=== PATIENT | male | born 1955 | race Caucasian/White ===

== ENCOUNTER 2023-07-02 06:33 | Day surgery (SDC) | payer BC, SELFPAY ==
[2023-06-28 14:48] VITALS: BMI 28.7
[2023-07-02 06:59] VITALS: BP 146/90; PULSE 66; RESP 16; TEMP 36.7; O2SAT 97
--- NOTE | 2023-07-02 07:27 | HO.ANESPROP2 ---
FORMERLY [facility] Past Medical History Medical History Alcohol dependence Pancreatitis BPH (benign prostatic hyperplasia) Barretts esophagus Surgical History Surgical History Hx of excision of mass Hx of nasal polypectomy History of esophagogastroduodenoscopy (EGD) H/O colonoscopy History of Problems with Anesthesia: No Social History Social History Patient Tobacco Use Status: Former Tobacco user Tobacco use type: Cigarette Use of substances other than those prescribed or required for medical reasons: No Are you DNR?: No Advance Directives: No Advance Directives Information Provided: Yes Meds Allergies Allergy/AdvReac Type Severity Reaction Status Date / Time No Known Allergies Allergy Verified 07/02/23 06:53 Active Medications: Current Medications Sodium Biphosphate/Sodium Phosphate (Sodium Phosphate,Hamblen-Dibasic 133 Ml Enema) 133 ml MI ONCE PRN PRN Reason: Poor Colonoscopy Prep Results Home Medications Medication Instructions Recorded Confirmed Last Taken Type naproxen 500 mg tablet 500 mg PO BID PRN Pain 06/28/23 06/28/23 Unknown History omeprazole 20 mg capsule,delayed 20 mg PO DAILY 06/28/23 06/28/23 Unknown History release Exam Height,Weight and Vital Signs: Height 5 ft 7.75 in Weight 84.912 kg Last Vital Signs Temp 98.0 F 07/02/23 06:59 Pulse 66 07/02/23 06:59 Resp 16 07/02/23 06:59 BP 146/90 H 07/02/23 06:59 Pulse Ox 97 07/02/23 06:59 O2 Del Method Room Air 07/02/23 06:59 Airway TM Dist: >3cm Neck ROM: Full Loose/Missing/Broken Teeth: No Heart: RRR Lungs: CTA Assessment and Plan Assessment Anesthesia Assessment: Anesthesia Plan Discussed Final Anesthetic Review History of Problems with Anesthesia: No ASA Class: II Final Preanesthetic Review: Meds/Allgs Chart Reviewed, Consent Obtained/Reviewed and Anes Risks/Benef Reviewed Patient Risk: Low Procedure Risk: Low Anesthetic Plan Anesthetic Plan: MAC: Disposition: Standard PACU
[2023-07-02 08:59] VITALS: BP 125/76; PULSE 75; RESP 16; TEMP 36.4; O2SAT 98
--- NOTE | 2023-07-02 09:03 | PM.OP ---
Brief Operative Note Date of Service: 07/02/23 Pre-op diagnosis: Hayes's, Screening Post-op diagnosis: other (Same, Hiatal hernia, Diverticulosis) Procedure: EGD with biopsies and WATS brushings, Colonoscopy to the cecum Surgeon: Inocente Dixon MD Anesthesia: MAC Was an Brothel Keeper used for this Procedure?: No Estimated blood loss (mL): 2.0 Pathology: other (A. EG Junction at 32cm B. Esophagus at 30cm C. Esophagus at 28cm D. Esophagus at 26cm E. Esophagus at 24cm) Condition: stable Disposition: PACU
[2023-07-02 09:14] VITALS: BP 140/78; PULSE 62; RESP 18; TEMP 36.3; O2SAT 98
--- NOTE | 2023-07-02 12:11 | HO.POSTANES ---
Post Anesthesia Evaluation Post Anesthesia Evaluation Date of Service: 07/02/23 Vital Signs: Vital Signs Temp Pulse Resp BP Pulse Ox O2 Del Method 07/02/23 09:14 97.4 F 62 18 140/78 H 98 Room Air 07/02/23 08:59 97.6 F 75 16 125/76 98 Room Air 07/02/23 06:59 98.0 F 66 16 146/90 H 97 Room Air Anesthesia: Monitored Mental Status: Awake Pain Control: Satisfactory Nausea/Vomiting: None Hydration: Adequate Anesthesia-Related Issues: No Anes. Related Issues
--- NOTE | 2023-07-02 14:33 | OP_ITS ---
DATE OF SERVICE: 07/02/2023 SURGEON: Inocente Dixon MD INDICATIONS: The patient presents for evaluation of gastroesophageal reflux, Hayes's esophagus, and colorectal cancer screening. Full consent has been obtained from him for this, including risks of bleeding and perforation. PREOPERATIVE DIAGNOSIS: POSTOPERATIVE DIAGNOSIS: PROCEDURE PERFORMED: Esophagogastroduodenoscopy with biopsies and WATS brushings and colonoscopy to the cecum. ESTIMATED BLOOD LOSS: COMPLICATIONS: ANESTHESIA: Monitored anesthesia care. ASSISTANTS: SPECIMENS: PREOPERATIVE DIAGNOSES: Gastroesophageal reflux, Hayes's esophagus, and colorectal cancer screening. POSTOPERATIVE DIAGNOSES: Gastroesophageal reflux, Hayes's esophagus, and colorectal cancer screening, hiatal hernia, Hayes's esophagus, diverticulosis, and internal hemorrhoids. DESCRIPTION OF PROCEDURE: The patient was placed in the left lateral decubitus position. The Olympus video gastroscope was passed in the posterior oropharynx and upper esophagus under direct vision. The scope was passed slowly to the distal esophagus. The gastroesophageal junction appeared at 32 cm. Extending from this to 24 cm was a circumferential segment of Hayes's mucosa. There was no evidence of any lesions nor esophagitis. The scope entered the stomach. There was a moderate-sized hiatal hernia. The hiatal hernia's gastric mucosa appeared normal. The scope was advanced to the pylorus, and the duodenum was cannulated to the descending portion. The duodenum including the bulb appeared normal without mass or ulceration. The scope was withdrawn back in the stomach. The gastric antrum and body appeared normal with good peristalsis. The scope was retroflexed visualizing the proximal stomach carefully, which appeared normal, without any sign of mass or ulceration. The scope was straightened and withdrawn back to the esophagus. I proceeded to obtain multiple biopsies at the EG junction at 32 cm, then in the esophagus at 30 cm, 28 cm, 26 cm, and at 24 cm at what appeared to be the squamocolumnar junction. I then obtained a set of WATS brushings of the esophageal mucosa. Proximal to 24 cm, the esophageal mucosa appeared normal. The scope was withdrawn from the patient. He was turned around for the colonoscopy. The digital rectal exam revealed no abnormalities. The Olympus video pediatric colonoscope was entered into the rectum and advanced easily to the cecum. Once in the cecum, I did identify normal-appearing cecal pouch with appendiceal orifice, and a normal-appearing ileocecal valve. The entire cecum and ileocecal valve appeared normal. The appendiceal orifice appeared normal. There was transillumination of light deep in the right lower quadrant. The scope was slowly withdrawn assessing all mucosal surfaces carefully. Preparation was excellent. I did not visualize any sign of polyps, colitis, nor angiodysplasia. There was a moderate amount of diverticulosis. In the rectum, scope was retroflexed visualizing internal hemorrhoids but no other pathology. The rectal mucosa appeared normal. The scope was straightened and withdrawn from the patient. He tolerated the procedure well and was returned to the recovery area in stable condition. IMPRESSION: 1. Hayes's esophagus, rule out dysplasia. 2. Hiatal hernia. 3. Diverticulosis. 4. Internal hemorrhoids. PLAN: The results of the pathology will be checked. Assuming there is no dysplasia within the Hayes's esophagus, I would recommend a repeat upper endoscopy in 3 years. He was advised to continue his daily omeprazole. He was advised not to use any aspirin and NSAIDs for at least 1 week. I would recommend a repeat colonoscopy in 10 years as well for further screening. He will otherwise see me on a p.r.n. basis. This has been discussed with his . MD CARMEN Vinson/HETAL / [phone] MTDJudith
== END 2023-07-02 09:59 | disposition home or self-care (01) ==
PROVIDERS: PCP Physician Assistant; Visit Provider Internal Medicine
PROC: (CPT 45378; principal; 2023-07-02 07:30)
DX: Z12.11 Encounter for screening for malignant neoplasm of colon (principal); K57.30 Diverticulosis of large intestine without perforation or abscess without bleeding; K64.8 Other hemorrhoids; K22.70 Barrett's esophagus without dysplasia; Z80.0 Family history of malignant neoplasm of digestive organs; K21.9 Gastro-esophageal reflux disease without esophagitis; K44.9 Diaphragmatic hernia without obstruction or gangrene; F10.21 Alcohol dependence, in remission; Z87.19 Personal history of other diseases of the digestive system; N40.0 Benign prostatic hyperplasia without lower urinary tract symptoms; Z79.899 Other long term (current) drug therapy; Z79.1 Long term (current) use of non-steroidal anti-inflammatories (NSAID); Z98.890 Other specified postprocedural states; Z87.891 Personal history of nicotine dependence
CPT/HCPCS: 45378; 43239; 88305; J2704

== ENCOUNTER 2024-10-31 07:22 | Day surgery (SDC) | payer MEDICARE, SELFPAY ==
--- OUTSIDE RECORDS SUMMARY | 2024-10-01 16:42 | XMS_ITS ---
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 Name Role Phone Andrei Huong URBAN Primary Care Provider Inocente Sepulveda [phone] Allergies No Known Allergies REASON FOR VISIT patient presents today for egd recall Medications Medication SIG (Take, Route, Fr equency, Duration) Notes Start Date End Date Status Omeprazole 40 MG 1 capsule 1/2 to 1 h our before morning meal Orally Once a day for 90 days 07/08/2024 Active Omeprazole 20 MG 1 capsule Orally Onc e a day for 90 Active Naproxen 500 MG Oral for 90 prn No t-Taking Social History Tobacco Use: Social History Observation Description Date Details (start date - stop date) Former Smoker NA - NA Tobacco Use/Smoking Question Answer Notes Patient is a former smoker How long has it been since you last smoked? 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) Active confirmed Vital Signs Blood pressure systolic 00 mm Hg 07/08/19 25 Blood pressure diastolic 00 mm Hg 025 Height 67.75 in 07/08/2024 Weight 191 lbs 07/08/2024 BMI 29.25 kg/m2 07/08/2024 Encounters Encounter Location Date Provider Diagnosis [facility] [address] [place] [address] 07/08/2024 Inocente Dixon Gastro-esophageal reflux disease without esophagitis K21.9 ; Hayes's esophagus with dysplasia, unspecified K22.719 and Colon cancer screening Z12.11 Assessments Encounter Date Diagnosis (ICD Code) Assessment Notes Treatment Notes Treatment Clinical Notes Section Notes 07/08/2024 Gastro-esophage al reflux disease without esophagitis (ICD-10 - K21.9) Start using a total of 40mg omeprazole every day...either 2 of the 20mg or 1 of the 40mg Overall, Valente appears well. We did review his negative screening colonoscopy from last year and I advised him the need for another followup colonoscopy for screening in 10 years in 2033 given his lack of family history of colon cancer. We did discuss his Hayes's esophagus with indefinite dysplasia, as well as his increasing symptoms of reflux. I did advise him that he needs to try to watch his diet, eat small meals, and lose some weight. I did recommend that he increase the omeprazole to 40 mg daily and I sent in a prescription for that. Given the finding of indefinite dysplasia one year ago, I shall repeat the upper endoscopy with brushings to further inspect that to be sure there is no finding of any increasing dysplasia that might require consideration for endoscopic ablation therapy. Full consent was obtained for the endoscopy, including risks of bleeding and perforation. The procedure will be done with monitored anesthesia care. Thank you again for allowing me to participate in Valente's care. I shall continue to keep you advised of his progress. 07/08/2024 Hayes's esophagus with dysplasia, unspecified (ICD-10 - K22.719) Overall, Valente appears well. We did review his negative screening colonoscopy from last year and I advised him the need for another followup colonoscopy for screening in 10 years in 2033 given his lack of family history of colon cancer. We did discuss his Hayes's esophagus with indefinite dysplasia, as well as his increasing symptoms of reflux. I did advise him that he needs to try to watch his diet, eat small meals, and lose some weight. I did recommend that he increase the omeprazole to 40 mg daily and I sent in a prescription for that. Given the finding of indefinite dysplasia one year ago, I shall repeat the upper endoscopy with brushings to further inspect that to be sure there is no finding of any increasing dysplasia that might require consideration for endoscopic ablation therapy. Full consent was obtained for the endoscopy, including risks of bleeding and perforation. The procedure will be done with monitored anesthesia care. Thank you again for allowing me to participate in Valente's care. I shall continue to keep you advised of his progress. 07/08/2024 Colon cancer screening (ICD-10 - Z12.11) Change colonoscopy recall to 06/2033 Overall, Valente appears well. We did review his negative screening colonoscopy from last year and I advised him the need for another followup colonoscopy for screening in 10 years in 2033 given his lack of family history of colon cancer. We did discuss his Hayes's esophagus with indefinite dysplasia, as well as his increasing symptoms of reflux. I did advise him that he needs to try to watch his diet, eat small meals, and lose some weight. I did recommend that he increase the omeprazole to 40 mg daily and I sent in a prescription for that. Given the finding of indefinite dysplasia one year ago, I shall repeat the upper endoscopy with brushings to further inspect that to be sure there is no finding of any increasing dysplasia that might require consideration for endoscopic ablation therapy. Full consent was obtained for the endoscopy, including risks of bleeding and perforation. The procedure will be done with monitored anesthesia care. Thank you again for allowing me to participate in Valente's care. I shall continue to keep you advised of his progress. Plan Of Treatment Medication Medication Name Sig Start Date Stop Date Notes Omeprazole 40 MG 1 capsule 1/2 to 1 h our before morning meal Orally Once a day for 90 days 07/08/2024 Treatment Notes Assessment Notes Gastro-esophageal reflux dis ease without esophagitis Start using a total of 40mg omeprazole every day...either 2 of the 20mg or 1 of the 40mg Colon cancer screening Change colonoscop y recall to 06/2033 Future Test Test Name Order Date UPPER GI ENDOSCOPY 07/08/2024 Next Appt Details Follow Up: prn, Reason: Provider Name:Inocente Dixon , 10/27/2024 07:30:00 AM, [address] [place] [address] , [place], [place], [id number], Progress Notes * KANDY MARLEY:1955 (69 yo M)Acc No.[id number]:07/08/2024 Progress Notes Patient:VALENTE MONAHAN Provider:?Inocente Dixon MD :1955???Age:69 Y???Sex:Male Osmani e:07/08/2024 Address:[address] [place] [address] Pcp:Huong Forbes CNP Subjective: * Chief Complaints: * ???Patient presents today fo r egd recall * HPI: ???incontinence:? I saw Valente in followup today in regard to his chronic gastroesophageal reflux with an associated hiatal hernia and long segment of Hayes's esophagus with indefinite dysplasia, as well as discussion of colorectal cancer screening. ?I last saw Valente in June of 2023, at which time he underwent an upper endoscopy and colonoscopy. The screening colonoscopy was negative for any polyps. His upper endoscopy revealed his known long segment of Hayes's esophagus with a moderate size hiatal hernia. There was no esophagitis. Routine biopsies from the esophagus were all negative for dysplasia but brushings did show some indefinite dysplasia. Since the procedure is remain on omeprazole 20 mg daily but has been experiencing more recent episodes of some increasing heartburn and reflux. He attributes this to his eating and having gained about 10 pounds. He denies any dysphagia, anorexia, early satiety, nausea, nor vomiting. His bowel movements have been regular and without any signs of bleeding. He denies any abdominal pain or jaundice. He has continued to remain abstinent from alcohol for over 25 years now. * ROS:?General/Constitutional:?Change in appetite?denies.?Chills?denies.?Fatigue?denies.?Ophthalmologic:?Patient denies? Negative..?ENT:?Patient denies?Negative..?Respiratory:?Patient denies?No coughing/hemoptysis..?Cardiovascular:?Patient denies? No chest pain/orthopnea..?Gastrointestinal:?Comments?See HPI for details.?Genitourinary:?Patient denies? No dysuria/hematuria..?Musculoskeletal:?Patient denies? No specific arthralgias/myalgias..?Skin:?Patient denies?No rash/pruritus..?Neurologic:?Patient denies? No headaches/seizures..?Psychiatric:?Patient denies?Negative..? * Medical History:? * Surgical History:?Surgery fo r lipomas Sinus polyp surgery 10/31/12 * Hospitalization/Major Diagno stic Procedure:?No Hospitalization History. * Family History:?Father: dece ased.?Mother: .?Siblings: He has a brother that in this late 40's from esophageal cancer, but he had been a heavy drinker..? Brother had esophageal cancer- in his 40's-he had a hx of alcohol. No family hx of colorectal cancer. * Social History:?Tobacco Use:?Tobacco Use/Smoking?Patient is a?former smoker,?How long has it been since you last smoked??> 10 years.?Drugs/Alcohol:?Alcohol Screen?Points: 0, Interpretation: Negative.?Miscellaneous:?Marital status: . Occupation: [employer]/ retired nov 02 2023. ???Nonsmoker >10 yrs; sober from alcohol >25 yrs as of the 06/2024 OV. * Medications:?TakingOmeprazol e 20 MG Capsule Delayed Release 1 capsule Orally Once a dayTaking Omeprazole 20 MG Capsule Delayed Release 1 capsule Orally Once a dayNot-Taking/PRNNaproxen 500 MG Tablet Oral , Notes: prnMedication List reviewed and reconciled with the patientNot-Taking/PRN Naproxen 500 MG Tablet Oral , Notes: prnMedication List reviewed and reconciled with the patient * Allergies:?N.K.D.A.yes[Aller gies Verified] Objective: * Vitals:?Wt: 191 lbs, Ht: 67. 75 in, BMI:29.25 Index, BP: 00/00 mm Hg. * Examination: ???General Examination: ?GENERAL APPEARANCE:?pleasant, well nourished, well developed, in no acute distress.?EYES:?sclera non-icteric.?ORAL CAVITY:?mucosa moist.?NECK/THYROID:?no cervical lymphadenopathy, neck supple.?SKIN:?nonjaundiced, no spider angiomata..?HEART:?S1, S2 normal.?LUNGS:?clear to auscultation bilaterally.?ABDOMEN:?normal bowel sounds, no guarding or rigidity, no hepatosplenomegaly, no masses palpable, soft, nontender, nondistended..?EXTREMITIES:?no edema.?NEUROLOGIC:?alert and oriented.? Assessment: * Assessment: 1.?Hayes's esophagus with dysplasia, unspecified - K22.719 (Primary)?2.?Gastro-esophageal reflux disease without esophagitis - K21.9?3.?Colon cancer screening - Z12.11? Overall, Valente appears well. We did review his negative screening colonoscopy from last year and I advised him the need for another followup colonoscopy for screening in 10 years in 2033 given his lack of family history of colon cancer. We did discuss his Hayes's esophagus with indefinite dysplasia, as well as his increasing symptoms of reflux. I did advise him that he needs to try to watch his diet, eat small meals, and lose some weight. I did recommend that he increase the omeprazole to 40 mg daily and I sent in a prescription for that. Given the finding of indefinite dysplasia one year ago, I shall repeat the upper endoscopy with brushings to further inspect that to be sure there is no finding of any increasing dysplasia that might require consideration for endoscopic ablation therapy. Full consent was obtained for the endoscopy, including risks of bleeding and perforation. The procedure will be done with monitored anesthesia care. Thank you again for allowing me to participate in Valente's care. I shall continue to keep you advised of his progress. Plan: * Treatment: 2.?Gastro-esophageal reflux disease without esophagitis? Start Omeprazole Capsule Delayed Release, 40 MG, 1 capsule 1/2 to 1 hour before morning meal, Orally, Once a day, 90 days, 90, Refills 3.?Procedure: UPPER GI ENDOSCOPY (Ordered for 07/08/2024)* With MAC, with WATS study. a nd with a CypherStudysched for 10/27/24 at 9:30 am Notes: Start using a total of 40mg omeprazole every day...either 2 of the 20mg or 1 of the 40mg ?3.?Colon cancer screening? Notes: Change colonoscopy recall to 06/2033?? * Procedure Codes:?3017F COLOR ECTAL CA SCREEN DOC [id number] TOBACCO [id number] BP SCR NOT PRFRM REC REASON NOS * Preventive Medicine:? ??Counseling:?Care goal follow-up plan:?Above Normal BMI Follow-up?Giving encouragement to exercise,?BMI management provided?Yes.? ??Screenings:?Fall Risk Screening?Fall Risk Assessment:?No falls in the past year,?Screening:?No falls in the past year,?Assessment:?Not performed, no reason specified,?Plan of Care:?Not documented, no reason specified.? * Follow Up:?prn * * Sign off status: Completed true * Provider:?Inocente Dixon MD Date:? 025 Generated for Cherise perez/Fidencio/Carlieitting on:?10/01/2024 04:42 PM EDT History and Physical Notes * HPI (History of Present Illness) Category Sub-Category Detail Notes Category Not es incontinence I saw Valente in followup today in regard to his chronic gastroesophageal reflux with an associated hiatal hernia and long segment of Hayes's esophagus with indefinite dysplasia, as well as discussion of colorectal cancer screening. I last saw Valente in June of 2023, at which time he underwent an upper endoscopy and colonoscopy. The screening colonoscopy was negative for any polyps. His upper endoscopy revealed his known long segment of Hayes's esophagus with a moderate size hiatal hernia. There was no esophagitis. Routine biopsies from the esophagus were all negative for dysplasia but brushings did show some indefinite dysplasia. Since the procedure is remain on omeprazole 20 mg daily but has been experiencing more recent episodes of some increasing heartburn and reflux. He attributes this to his eating and having gained about 10 pounds. He denies any dysphagia, anorexia, early satiety, nausea, nor vomiting. His bowel movements have been regular and without any signs of bleeding. He denies any abdominal pain or jaundice. He has continued to remain abstinent from alcohol for over 25 years now. Examination Category Sub-Category Detail Notes Category Not es General Examination GENERAL APPEARANCE: pleasant , well nourished, well developed, in no acute distress EYES: sclera non-icteric NECK/THYROID: no cervical lymphade nopathy, neck supple HEART: S1, S2 normal LUNGS: clear to auscultatio n bilaterally ABDOMEN: normal bowel sounds, no guarding or rigidity, no hepatosplenomegaly, no masses palpable, soft, nontender, nondistended. NEUROLOGIC: alert and oriented SKIN: nonjaundiced, no spi jose g angiomata. EXTREMITIES: no edema ORAL CAVITY: mucosa moist
--- NOTE | 2024-10-29 13:09 | HO.ANESPROP2 ---
HPI - Anesthesia Eval Consult details Narrative: 69yo M for Upper Endoscopy with COLON and Cypher ETOH dependence PMFSH Past Medical History Medical History Alcohol dependence Pancreatitis BPH (benign prostatic hyperplasia) Barretts esophagus Surgical History Surgical History Hx of excision of mass Hx of nasal polypectomy History of esophagogastroduodenoscopy (EGD) H/O colonoscopy History of Problems with Anesthesia: No Social History Social History Patient Tobacco Use Status: Former Tobacco user Tobacco use type: Cigarette Meds Allergies Allergy/AdvReac Type Severity Reaction Status Date / Time No Known Allergies Allergy Verified 07/02/23 06:53 Home Medications ?Medication ?Instructions ?Recorded ?Confirmed ?Last Taken ?Type naproxen 500 mg tablet 500 mg PO BID PRN Pain 06/28/23 06/28/23 Unknown History omeprazole 20 mg capsule,delayed 20 mg PO DAILY 06/28/23 06/28/23 Unknown History release Assessment and Plan Assessment Anesthesia Assessment: Chart Reviewed Final Anesthetic Review History of Problems with Anesthesia: No
[2024-10-29 14:14] VITALS: BMI 29.9
[2024-10-31 07:34] VITALS: BMI 27.9
[2024-10-31 07:46] VITALS: BP 130/70; PULSE 68; RESP 16; TEMP 36.1; O2SAT 97
[2024-10-31] MEDS: Lactated Ringers 1,000 ML 100 ML IVCONT (07:52)
--- NOTE | 2024-10-31 09:00 | HO.ANESPROP2 ---
[facility] Past Medical History Medical History (Updated 10/29/24 @ 14:12 by Jessica Appiah RN) Hiatal hernia Alcohol dependence Pancreatitis BPH (benign prostatic hyperplasia) Barretts esophagus Family History Family history of problems with anesthesia: No Surgical History Surgical History Hx of excision of mass Hx of nasal polypectomy History of esophagogastroduodenoscopy (EGD) H/O colonoscopy History of Problems with Anesthesia: No Social History Social History Patient Tobacco Use Status: Former Tobacco user Tobacco use type: Cigarette Use of substances other than those prescribed or required for medical reasons: No Are you DNR?: No Advance Directives: No Advance Directives Information Provided: Yes Poor oral hygiene: No Meds Allergies Allergy/AdvReac Type Severity Reaction Status Date / Time No Known Allergies Allergy Verified 07/02/23 06:53 Active Medications: Current Medications Lactated Ringer's (Lr) 1,000 mls @ 100 mls/hr IVCONT .Q10H MATILDA Last Admin: 10/31/24 07:52 Dose: 100 mls/hr Home Medications ?Medication ?Instructions ?Recorded ?Confirmed ?Last Taken ?Type omeprazole 20 mg capsule,delayed 20 mg PO DAILY 06/28/23 10/29/24 Unknown History release Exam Height,Weight and Vital Signs: Height 5 ft 9 in Weight 85.8 kg Last Vital Signs Temp 96.9 F 10/31/24 07:46 Pulse 68 10/31/24 07:46 Resp 16 10/31/24 07:46 BP 130/70 10/31/24 07:46 Pulse Ox 97 10/31/24 07:46 O2 Del Method Room Air 10/31/24 07:46 Airway Mallampati Class: I TM Dist: >3cm Neck ROM: Full Loose/Missing/Broken Teeth: No Heart: rrr Lungs: cta Assessment and Plan Assessment Anesthesia Assessment: Anesthesia Plan Discussed and Chart Reviewed Final Anesthetic Review Family History of Problems with Anesthesia: No History of Problems with Anesthesia: No NPO: Yes ASA Class: II Final Preanesthetic Review: No Changes in Pt Med Stat, Meds/Allgs Chart Reviewed and Consent Obtained/Reviewed Patient Risk: Low Procedure Risk: Low Anesthetic Plan Anesthetic Plan: MAC: and Agree w/ Assess. and Plan Disposition: Standard PACU
--- NOTE | 2024-10-31 09:34 | HO.POSTANES ---
Post Anesthesia Evaluation Post Anesthesia Evaluation Date of Service: 11/06/24 Vital Signs: Vital Signs Temp Pulse Resp BP Pulse Ox O2 Del Method 10/31/24 07:46 96.9 F 68 16 130/70 97 Room Air
[2024-10-31 09:51] VITALS: BP 105/64; PULSE 63; RESP 20; TEMP 36.3; O2SAT 95
--- NOTE | 2024-10-31 10:00 | PM.OP ---
Brief Operative Note Date of Service: 10/31/24 Pre-op diagnosis: Hayes's Post-op diagnosis: same Procedure: EGD with bx, WATS Brushings, and Cypher study Surgeon: Inocente Dixon MD Anesthesia: MAC Was an Radiation Protection Specialist used for this Procedure?: No Estimated blood loss (mL): 3.0 Pathology: other (A. EG Junction at 32cm B. Esophagus at 30cm C. Esophagus at 28cm D. Esophagus at 26cm E. Esophagus at 24cm) Condition: stable Disposition: PACU
[2024-10-31 10:06] VITALS: BP 110/69; PULSE 51; RESP 17; O2SAT 94
[2024-10-31 10:16] VITALS: BP 119/72; PULSE 56; RESP 18; TEMP 36.3; O2SAT 95
--- NOTE | 2024-10-31 11:08 | OP_ITS ---
DATE OF SERVICE: 10/31/2024 SURGEON: Inocente Dixon MD INDICATIONS: The patient presents for evaluation of Hayes's esophagus and indefinite dysplasia. Full consent is obtained from him for this, including risks of bleeding and perforation. PREOPERATIVE DIAGNOSIS: POSTOPERATIVE DIAGNOSIS: PROCEDURE PERFORMED: Esophagogastroduodenoscopy with multiple biopsies, WATS brushings, and Cypher study. ESTIMATED BLOOD LOSS: COMPLICATIONS: ANESTHESIA: Monitored anesthesia care. ASSISTANTS: SPECIMENS: PREOPERATIVE DIAGNOSES: History of Hayes's esophagus with indefinite dysplasia. POSTOPERATIVE DIAGNOSES: History of Hayes's esophagus with indefinite dysplasia, moderate sized hiatal hernia. DESCRIPTION OF PROCEDURE: The patient was placed in the left lateral decubitus position. The Olympus video gastroscope was passed in the posterior oropharynx and upper esophagus under direct vision. The scope was passed slowly into the distal esophagus. The gastroesophageal junction appeared at 32 cm. Extending from this to 24 cm was a circumferential segment of Hayes's mucosa. There was no overlying esophagitis nor any lesions noted. The scope entered the stomach. There was a moderate-sized hiatal hernia. The hiatal hernia mucosa appeared normal. The diaphragmatic indentation was at approximately 36 cm. The scope was advanced to pylorus and the duodenum was cannulated to the descending portion. The duodenum including the bulb appeared normal without mass or ulceration. The scope was withdrawn back in the stomach. The gastric antrum and body appeared normal with good peristalsis. The scope was retroflexed visualizing the proximal stomach carefully which appeared normal, without any sign of mass or ulceration. The scope was straightened and withdrawn back to the esophagus. I obtained multiple biopsies at 32 cm at the EG junction, 30 cm, 28 cm, 26 cm and at 24 cm at the squamocolumnar junction. I then obtained WATS brushings from 24 to 32 cm as well. Proximal to 24 cm, the esophageal mucosa appeared normal. The scope was withdrawn from the patient. He tolerated the procedure well and was returned to recovery area in stable condition. IMPRESSION: 1. Long segment of Hayes's esophagus, rule out dysplasia. 2. Hiatal hernia. PLAN: The results of the biopsies will be checked. At this point, he does report that he is symptomatically improved on the higher dose of omeprazole 40 mg daily. I did advise him to continue that long-term. He was advised not to use any aspirin or NSAIDs for at least 1 week. Further plans regarding future upper endoscopies will be made depending upon today's findings on the biopsies. If there is no dysplasia in any of the specimens, I would then recommend a repeat upper endoscopy within 2 years. Of note, an order was placed for tissue to be sent for a Cypher study. MD CARMEN Vinson/HETAL / [id number] MTDJudith
== END 2024-10-31 10:30 | disposition home or self-care (01) ==
PROVIDERS: PCP Physician Assistant; Visit Provider Internal Medicine
PROC: 0DJ08ZZ Inspection of Upper Intestinal Tract, Via Natural or Artificial Opening Endoscopic (ICD-10-PCS; CPT 43235; principal; 2024-10-31 10:30)
DX: K22.70 Barrett's esophagus without dysplasia (principal); K21.9 Gastro-esophageal reflux disease without esophagitis; K44.9 Diaphragmatic hernia without obstruction or gangrene; N40.0 Benign prostatic hyperplasia without lower urinary tract symptoms; F10.21 Alcohol dependence, in remission; Z87.19 Personal history of other diseases of the digestive system; Z79.899 Other long term (current) drug therapy; Z87.891 Personal history of nicotine dependence
CPT/HCPCS: 43239; 88305